=== PATIENT | male | born 1985 | race Hispanic/Latino ===

== ENCOUNTER 2017-11-24 03:47 | Emergency (ER) | payer SELFPAY ==
[2017-11-24 04:07] VITALS: RESP 17; TEMP 98.2; O2SAT 98
[2017-11-24 04:35] VITALS: BP 135/80; PULSE 98
== END 2017-11-24 04:35 | disposition left against medical advice (07) ==
LOC: ED 03:47
DX: Z02.89 Encounter for other administrative examinations (principal); Z00.00 Encounter for general adult medical examination without abnormal findings